=== PATIENT | male | born 1990 | race Caucasian/White ===

== ENCOUNTER 2019-11-29 03:12 | Emergency (ER) | payer OTHER | END 2019-11-29 05:36 | disposition other institution (70) | LOC: RD 03:12 → ED 03:12 → RD 05:36 | DX: Z02.89 Encounter for other administrative examinations (principal) ==

== ENCOUNTER 2019-11-29 03:12 | Emergency (ER) | payer SELFPAY ==
[~2019-11-29] VITALS: Ht 172.7 cm; Wt 80.7 kg
[2019-11-29 03:15] VITALS: Ht 172.7 cm; Wt 80.7 kg
[2019-11-29 05:36] VITALS: BP 136/88
== END 2019-11-29 05:36 | disposition other institution (70) ==
LOC: ED 03:12
DX: S02.2XXA Fracture of nasal bones, initial encounter for closed fracture (principal); S93.401A Sprain of unspecified ligament of right ankle, initial encounter; S05.12XA Contusion of eyeball and orbital tissues, left eye, initial encounter; S05.11XA Contusion of eyeball and orbital tissues, right eye, initial encounter; M25.512 Pain in left shoulder; Y04.0XXA Assault by unarmed brawl or fight, initial encounter; Y93.89 Activity, other specified; Y92.89 Other specified places as the place of occurrence of the external cause; Y99.8 Other external cause status
CPT/HCPCS: Q0092